=== PATIENT | female | born 1970 | race Caucasian/White ===

== ENCOUNTER 2017-12-05 15:20 | Inpatient (IN) | payer OTHER ==
--- NOTE | 2017-12-05 17:08 | ASMTLCPROG ---
Notes Note: Notes: [facility] to under the care of Dr. Cao for ECT evaluation and treatment. Date Signed: 12/05/2017 05:07 PM Electronically Signed By:Ashly Chu
--- NOTE | 2017-12-05 17:28 | ASMTTLCEVL ---
[facility] Evaluation - Basic Information Evaluation Start Date and 12/05/2017 04:45 PM Time Hospital Status Answers: Voluntary Patient statement Notes: Pt was not seen for evaluation. Information was obtained from reports gathered from in. stay at [facility] unit. Narrative Notes: Pt is a 46 year old female who had been admitted to [facility] behavioral health unit with suicidal ideations. Pts family had been concerned about her worsening symptoms of depression. Pt was experiencing inability to work or maintain her household responsibilities. 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 She has been treated with multiple SSRIs, SSRIs augmentation with lithium, thyroid hormones, abilify, stimulants, Wellbutrin and other mood stabilizers without significant improvement in symptoms. Per Dr Maguire report it was stated there does not appear to be any significant confounding diagnosis such as an underlying medical etiology or personality disorder. There was no report of any substance abuse hx or trauma. Pt was transferred to [facility] to be considered for ECT due to treatment resistant depression. Diagnosis History Notes: Pt has a hx of major depression with treatment resistant to a variety of medications. Prior suicide attempts Notes: There was no report available on history of past suicide attempts. Prior hospitalizations Notes: Information about past hospitalizations was not available. 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 She has been treated with multiple SSRIs, SSRIs augmentation with lithium, thyroid hormones, abilify, stimulants, Wellbutrin and other mood stabilizers without significant improvement in symptoms. History of violence Notes: Information about history of violence was not reported. Medications (name, dosage, route, freq uency) Notes: Wellbutrin XL, Adderall, Vit. D, Synthroid, Cytomel, Topamax, Bupropion, Dextroamphetamine, Fluoxetine, Levothy roxine, Topiramate. Allergies/Reaction Notes: Fentanyl, Penicillins, Sulfa and Tramadol. Sleep Notes: Not in report. Appetite Notes: Not available in report. Medical/Surgical history Notes: Pt has a confirmed hx of hyperathyroidism due to adenoma. She has had her parathyroid glands removed. Pt had denied any current thyroid concerns. Pt also has a hx of biliary dyskinesia and concussions. Substance use history (frequency, intensity, his tory, duration) Notes: Per report pt has no hx of substance abuse problems. Family composition Notes: Pt is with 2 children. Need for family Answers: Yes participation in patient's care Family psychiatric/substance abuse history Notes: Family hx of mental health problems was not available. Developmental history Notes: Developmental hx was not available. Abuse concerns Answers: None Marital status/children Notes: Pt is with 2 children. Living situation Notes: Pt lives with her and their 2 children. Sexual history/orientation Notes: Pt identifies herself as a heterosexual. Peer support/family strengths Notes: Pt appears to have family and friends who are concerned and involved. Education level/history Notes: Information about education was not available. Work history Notes: Pt is not employed. Notes: No known hx. Legal Notes: There is no report of any legal problem. Hindu/Spiritual Notes: There was no report of any catholic or spiritual beliefs that would impact her treatment. Leisure Notes: Information on leisure interests was not available in report from [facility]. Collateral Notes: Collateral inform was obtained from medical/physicatric reports of [facility]. Patient's strengths Answers: Good Friend to Others (Please select at least TWO strengths): Good Parent Honest [place] Motivated for Treatment Responsible/Dependable Supportive Family Willingness TLC Evaluation - Mental Status Exam Appearance: Answers: Appropriate Eye Contact: Answers: Appropriate for Culture Mood: Answers: Depressed Sad Affect: Answers: Apathetic Apprehensive Calm Congruent w/ Mood Flat Sad Behavior: Answers: Appropriate Cooperative Speech: Answers: Clear Coherent Thought Process: Answers: Oriented Insight: Answers: Fair Judgement: Answers: Fair Depression Answers: Difficulty Concentrating Signs/Symptoms: Diminished Interest Diminished Pleasure Flat Affect Hopelessness Sad Mood Withdrawn Hallucinations: Answers: None Current Stage of Change Answers: Action Pt reported to have Answers: Yes suicidal/self-injuring ideation/behavior? Pt reported to be making Answers: Yes suicidal/self-injuring threats? Pt reported to have Answers: No aggression/assault ideation/behavior? Pt reported to be making Answers: No aggression/assault threats? Pt exhibits inability to Answers: No care for self/grave disability? Patient has a specific Answers: Yes plan? Pt has access to means to Answers: Yes execute the plan? Ideation involves Answers: Yes serious/lethal intent? History of Answers: No aggressive/assaultive ideation, behavior, or threats? History of serious Answers: No physical harm to self/others while in treatment setting? TLC Evaluation - Suicide/Homicide Risk Suicide Risk Factors: Answers: Flat Affect Hopelessness Lack/Loss of Employment Major Depression None Current Suicidal Answers: Yes Ideation? Current Suicidal Ideation Answers: Yes in the Past 48 Hours? Current Suicidal Ideation Answers: Yes in the Past Month? Current Suicidal Answers: Yes Ideation, Worst Ever? Suicide Internal Answers: Absence of Psychosis Protective Factors: Suicide External Answers: Responsibility to Protective Factors: Children Ranking of patient's Answers: Severe suicidal risk: Ranking of patient's Answers: Low homicidal risk: TLC Evaluation - Wrap-up AXIS I Diagnosis (include DSM-V and ICD-10 codes), must also be entered in [employer], which is the source of truth. Notes: Major Depressive Disorder, recurrent, severe 296.33 (F33.2) DSM-V CODE: ICD-10 CODE: Evaluation End Date and 12/05/2017 05:30 PM Time (HH:MALOU): Date Signed: 12/05/2017 05:28 PM Electronically Signed By:Ashly Chu
[2017-12-05] MEDS ORDERED: MAGNESIUM HYDROXIDE 30 ML UDCUP PO PRN (22:24)
[2017-12-05] MEDS ORDERED: LORazepam 0.5 MG TAB PO PRN (22:24)
[2017-12-05] MEDS ORDERED: MAG HYDROX/AL HYDROX/SIMETH 30 ML UDCUP PO PRN (22:24)
[2017-12-05] MEDS ORDERED: NICOTINE POLACRILEX 2 MG GUM B PRN (22:24)
[2017-12-06] MEDS: LEVOTHYROXINE 88 MCG TAB PO SCH (08:09)
--- NOTE | 2017-12-06 08:33 | ASMTBHMTP ---
Master Treatment Plan Master Treatment Plan Answers: Depressed Mood with for: Suicidal Ideation Date: 12/05/2017 Diagnosis on Admission: Major Depressive Disorder, Recurrent, Severe 296.33 (F33.2) Expected length of stay: 3-5 days Reason for admission: Notes: Pt is a 46 year old female who had been admitted to [facility] in behavioral health unit with suicidal ideations. Pts family had been concerned about her worsening symptoms of depression. Pt was experiencing inability to work or maintain her household responsibilities. 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 She has been treated with multiple SSRIs, SSRIs augmentation with lithium, thyroid hormones, abilify, stimulants, Wellbutrin and other mood stabilizers without significant improvement in symptoms. Per Dr Maguire report it was stated there does not appear to be any significant confounding diagnosis such as an underlying medical etiology or personality disorder. There was no report of any substance abuse hx or trauma. Pt was transferred to [facility] to be considered for ECT due to treatment resistant depression. Patient's stated presenting problems: Notes: "Cause I can't deal with the craziness in my head anymore." Patient's goals for treatment: Notes: "hopefully, start ECT treatment and that it helps me feel better." Patient's strengths: Notes: some Identify supports outside of hospital: Notes: "Family and Friends" Discharge criteria: Notes: Suicidal Ideation will resolve and patient will have a plan to safely manage recurrent suicidal ideiaotn. Initial disposition plan/considerations: Notes: "To return home ([place] [facility]). Master Treatment Plan Required Signatures Psychiatrist signature: Answers: Psychiatrist: RN on-shift signature: Answers: RN: Patient signature: Answers: Patient: Date Signed: 12/06/2017 08:32 AM Electronically Signed By:Keon Alegre
--- NOTE | 2017-12-06 09:06 | GCON ---
[f rep st] CONSULTATION DATE OF CONSULTATION: 12/06/2017 REFERRING PHYSICIAN: Tasha Peñaloza MD REASON FOR CONSULTATION: Medical management. HISTORY OF PRESENT ILLNESS: A 47-year-old female with depression, cluster headaches, hypothyroidism, who had been admitted to [facility] inpatient behavior health unit with suicidal ideations. Her family had been concerned about worsening symptoms of depression, which she also endorses. She has been having increased crying episodes, decreased mood. She has been treated with multiple SSRIs, lit hium, Abilify, stimulants. No history of substance abuse or trauma. Her greatest concern is a 15-pound weight gain. She used to walk all the time, but has been so down that this is no longer part of her routine. Her sleep patterns vary to the point where she is sleepi ng all day or she is up all night. Her appetite is intermittent. Patient was transferred to [address] to be considered for ECT treatment for resistant depression. REVIEW OF SYSTEMS: I completed a 10-point review of systems, negative, except as noted in HPI. PAST MEDICAL HISTORY: Depression, cluster headaches, hypothyroidism, B12 deficiency. FAMILY HISTORY: No headaches. Mother with hypertension. PAST SURGICAL HISTORY: Right foot surgery x3. Hernia repair as a child, parathyroidectomy, adenoide ctomy, teratoma. SOCIAL HISTORY: Lives in [place] with her . Her 2 grown children have moved back to pay off student loans. Denies alcohol, tobacco, or illicits. HOME MEDICATIONS: Topamax 100 mg q.h.s., Prozac 40 mg daily, Adderall 40 mg daily, Synthroid 88 mcg daily, Wellbutrin 150 mg daily, Cytomel. She was previously on that, but this was discontinued at [facility]. ALLERGIES: Fentanyl, penicillin, sulfa, tramadol. PHYSICAL EXAMINATION: VITAL SIGNS: Temperature 36.4, blood pressure 101/51, heart rate in the 60s, respirations 16, 97% on room air. GENERAL: Overweight female, lying in bed, mildly tearful, but no acute distress. HEENT: PERRLA. Moist mucous membranes. CV: Regular rate and rhythm. LUNGS: Olga r. ABDOMEN: Obese, soft, nontender, nondistended. Positive bowel sounds. : No [place]. MUSCULOSK ELETAL: 5/5 upper/lower extremity strength. NEURO: 2 through 12 intact. PSYCH: Alert and oriente d x3. LABS: None. ASSESSMENT AND PLAN: 1. Resistant depression: On multiple agents. Was transferred here for ECT treatments. Resume home medications per Dr. Peñaloza. 2. Hypothyroidism: Cytomel was recently discontinued. Will check a baseline TSH here with weight g ain. 3. History of vitamin B deficiency: Will check this. Can replete with oral supplementation. 4. Weight gain: Suspect this is related to her depression, but labs as stated above. 5. Diet: Regular. 6. Deep vein thrombosis prophylaxis: She is ambulatory. Thanks for this consultation. Please call if any questions. /[id number]/MODL
[2017-12-06] MEDS: buPROPion XL 150 MG TAB PO SCH (09:26)
[2017-12-06] MEDS: FLUoxetine 20 MG CAP PO SCH (09:27)
[2017-12-06] MEDS: Dextroamphetamine/Amphetamine [Adderall Xr 20 Mg Capsule] PO SCH (14:26)
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
--- NOTE | 2017-12-06 20:13 | PDMN ---
Medical Necessity Medical [place] [facility] [place] major depressive disorder IP 3 days; pt transferred for ECT, further monitoring needed
[2017-12-06] MEDS: TOPIRAMATE 100 MG TAB PO SCH (20:48)
[2017-12-07] MEDS: LEVOTHYROXINE 88 MCG TAB PO SCH (06:59)
[2017-12-07] MEDS: FLUoxetine 20 MG CAP PO SCH (09:02)
[2017-12-07] MEDS: Dextroamphetamine/Amphetamine [Adderall Xr 20 Mg Capsule] PO SCH (09:03)
[2017-12-07] MEDS: buPROPion XL 150 MG TAB PO SCH (09:09)
[2017-12-07] MEDS: TOPIRAMATE 100 MG TAB PO SCH (20:34)
--- NOTE | 2017-12-07 21:55 | SOAPPROG ---
SOAP Progress Note Assessment/Plan: Assessment: 46yo CF with severe MDD transferred from [facility] to [facility] for ECT 12/07/17 15:30 per [facility] staff, pt has been isolative. On brief interview, pt reported no acute issues, no physical c/o. MSE: casually dressed, nml rate/low vol speech, mild psychomot retardation. nml e/c. mood was +depressed, with congruent affect, denied AH/VH. occ passive SI but no plan/intent to harm self. thoughts linear/goal-directed. decr spontaneity. insight fair, jdmt limited. cognition intact. Later noted to be trying very hard to contain her visible anxiety and emotional distress triggered by a yelling episode by a peer on the unit, which occurred yesterday (on her first hospital day, first hospitalization) as well. Family had just come to visit, so she was allowed a prolonged visit off the unit with them. She preferred to stay just outside unit in sitting area instead of going outside/courtyard also b/c one visitor on crutches. Mood seemed brightened with their visit. PLAN: cont current home meds, off Adderall and recently off Cytomel planning ECT consult in AM Objective: Vital Signs Temp Pulse Resp BP Pulse Ox 36.5 C 66 14 104/55 L 97 12/07/17 06:00 12/07/17 06:00 12/07/17 06:00 12/07/17 06:00 12/07/17 06:00 - Time Spent With Patient Time Spent With Patient: 20min - Pending Discharge Pending Discharge Within 24 Hours: No Pending Discharge Within 48 Hours: No ICD10 Worksheet Patient Problems: Problems Problem Status Onset Major depressive disorder, recurrent, severe without psychotic behavior Acute
[2017-12-08] MEDS: ACETAMINOPHEN 325 MG TAB PO PRN (08:39)
[2017-12-08] MEDS: FLUoxetine 20 MG CAP PO SCH (08:39)
[2017-12-08] MEDS: LEVOTHYROXINE 88 MCG TAB PO SCH (08:39)
[2017-12-08] MEDS: buPROPion XL 150 MG TAB PO SCH (08:39)
[2017-12-08] MEDS ORDERED: ONDANSETRON DISINTEGRATING 4 MG TAB PO PRN (11:49)
[2017-12-08] MEDS ORDERED: CITRIC ACID/SODIUM CITRATE 30 ML UDCUP PO PRN (11:49)
[2017-12-08] MEDS ORDERED: ONDANSETRON DISINTEGRATING 4 MG TAB ONE ×2 (15:03→16:54)
[2017-12-08] MEDS ORDERED: CITRIC ACID/SODIUM CITRATE 30 ML UDCUP ONE (15:04)
[2017-12-08] MEDS: NS 1,000 ML IV PRN (15:06)
[2017-12-08] MEDS ORDERED: MIDAZOLAM 2 MG/2 ML VIAL ONE (15:39)
[2017-12-08] MEDS ORDERED: fentaNYL 100 MCG/2 ML INJ ONE (15:39)
[2017-12-08] MEDS ORDERED: SUCCINYLCHOLINE CHLORIDE 200 MG/10 ML VIAL ONE (15:40)
[2017-12-08] MEDS ORDERED: ROCURONIUM 50 MG/5 ML VIAL ONE (15:40)
[2017-12-08] MEDS ORDERED: KETOROLAC 30 MG/1 ML SDV ONE (15:40)
[2017-12-08] MEDS ORDERED: GLYCOPYRROLATE 0.2 MG/1 ML VIAL ONE (15:40)
[2017-12-08] MEDS ORDERED: PROPOFOL 200 MG/20 ML VIAL ONE (15:40)
[2017-12-08] MEDS ORDERED: ONDANSETRON 4 MG/2 ML VIAL ONE (15:40)
[2017-12-08] MEDS ORDERED: ETOMIDATE 20 MG/10 ML VIAL ONE (15:40)
--- NOTE | 2017-12-08 15:41 | PDECTPN ---
ECT Progress Note Patient Problems: Problems Problem Status Onset Code Major depressive disorder, recurrent, severe without psychotic behavior Acute F33.2 Date: 12/08/17 ECT provider: Narendra Cao Anesthesia: Daniel Bob Stimulus dose (%): 35 Pulse width: 0.3 ECT EMG (sec): 27 ECT EEG (sec): 56 ECT treatment type: unilateral QIDS-SR Total Score: 21 QIDS-SR Question #12 Score: 0 MMSE Total Score (Max = 21): 20 Next ECT date: 12/10/17 Next ECT time: 14:30 Home medications: Medication Instructions Recorded Dextroamphetamine/Amphetamine 40 mg PO DAILY 12/05/17 [Adderall Xr 20 mg Capsule] FLUoxetine [Prozac 20 MG (*)] 40 mg PO DAILY 12/05/17 Levothyroxine [Synthroid 88 mcg 88 mcg PO DAILY06 12/05/17 (*)] Topiramate [Topamax 100MG (*)] 100 mg PO HS 12/05/17 buPROPion XL [Wellbutrin Xl] 150 mg PO DAILY 12/05/17 Medication review: completed Current treatment plan: acute phase Treatment plan frequency: 3 times per week ECT narrative: Pt presents for initial acute course treatment. She reports continued feelings of sadness, helplessness, hopelessness, guilt, shame, and SI. States, "I know I can't go on this way any more. I just want to go away." Mood remains depressed. C/o back and foot pain, and nausea. Affect is constricted, stable, approp. Mood is "depressed." TP is linear. TC reveals no psychosis. A&Ox4, sensorium is clear. SI persists. Underwent RUL ECT without complication. Will proceed with acute course ECT. Consider titration of bupropion.
--- NOTE | 2017-12-08 15:50 | PDHPUP ---
History & Physical Update H&P update statement: This history and physical update is based on an assessment of the patient which was completed after admission or registration (within 24 hours), but prior to the surgery/procedure. H&P update: H&P reviewed & patient examined, no change in patient's condition since H&P completed
--- NOTE | 2017-12-08 15:51 | PDANEPAE ---
ECT Pre Anesthetic Evaluation Allergies/Adverse Reactions: fentanyl Allergy (Verified 12/05/17 22:11) Penicillins Allergy (Verified 12/05/17 22:11) Sulfa (Sulfonamide Antibiotics) Allergy (Verified 12/05/17 22:11) tramadol Allergy (Verified 12/05/17 22:11) Patient ID confirmed: Yes H&P reviewed: Yes Pre-anesthetic history reviewed: Yes Heart: regular rate and rhythym, no murmur, rub, or gallop Lungs: no respiratory distress, clear to auscultation Mallampati Score: Class 1 ASA Status: III Home Medications: Medication Instructions Recorded Dextroamphetamine/Amphetamine 40 mg PO DAILY 12/05/17 [Adderall Xr 20 mg Capsule] FLUoxetine [Prozac 20 MG (*)] 40 mg PO DAILY 12/05/17 Levothyroxine [Synthroid 88 mcg 88 mcg PO DAILY06 12/05/17 (*)] Topiramate [Topamax 100MG (*)] 100 mg PO HS 12/05/17 buPROPion XL [Wellbutrin Xl] 150 mg PO DAILY 12/05/17 Medication review: completed Patient interviewed: Yes Patient examined: Yes Anesthetic plan discussed with patient: Yes Anesthetic risks discussed with patient: Yes ECT Pre-Anesthetic History - Height & Weight Height: 177.8 cm Weight: 106.849 kg BMI: 33.80 - Anesthesia History Hx Anesthesia Complications (with details): Has had a hard time waking up and has felt sick. Short acting is better. - Medications In the Past 6 Months the Patient Has Taken: Thyroid Medication - Tobacco/Alcohol/Drug Use Smoking Status: Never smoked Hx Drug/Substance Abuse: No Alcohol Use: No - Prior Surgeries/Hospitalizations Prior Surgeries: Parathyroid removed 2012. 3 surgeries on right foot:2011;2009 ; 1999. 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 Groin hernia repair in 1969. Prior Medical Hospitalizations: As above. 2 children born vaginally. - Pulmonary History ECT Hx Asthma: No Hx Abnormal Chest X-Ray: No Hx Oxygen in Use at Home: No - Cardiovascular History Hx Hypertension: No Currently Uses Hypertension Medication: No Hx Arrhythmias: No Hx Palpitations: No Hx Chest Pain: No Hx Coronary Artery / Peripheral Vascular Disease: No Hx Blood Clot: No - Neurologic History Hx Cerebrovascular Accident: No Hx CT Scan Or MRI Of The Brain: No Hx Epilepsy, Convulsions, Seizures, Or Blackouts: No Hx Frequent Or Severe Headaches: Yes Hx Numbness: No Hx Neurologic Disorder: No - Dental History Current Dental Issues: None - Endocrine History Hx Diabetes: No Current Daily Insulin Injections: No Hx Thyroid Problems: Yes Endocrine History Comment: Thyroid low; one parathyroid removed. - Renal/Urologic History Hx Renal Disorders: No Hx Urinary Tract Problems: No - Liver History Hx Hepatic Disorders: No - Cancer History Hx Cancer: No - Hematology History Hx Unexplained Bleeding Of Any Type: No Hx Ease Of Bruising: No Hx Anemia: No - Gastrointestinal History Hx Gastroesophogeal Reflux Disease: Yes Hx Ulcers: No Hx Hiatal Hernia: No Hx Difficulty Swallowing: No - Musculoskeletal Hisory Hx Chronic Pain: No Hx Arthritis: No - Opthalmic History Hx Glaucoma: No Visual Assistive Devices: Glasses Hx Opthalmic Disorders: No - Other Health History Physical Disabililty: No Recent Cough, Cold, or Fever: No Significant Weight Loss In The Last 4 Months: No Possible the Patient Might be : No Other Health History Comment: 1998 hysterecomy
[2017-12-08] MEDS ORDERED: ONDANSETRON DISINTEGRATING 4 MG TAB PO ONE (16:58)
--- NOTE | 2017-12-08 17:11 | POSTANESTH ---
Post Anesthetic Evaluation Cardiovascular Status: Normal, Stable Respiratory Status: Normal, Stable Level of Consciousness/Mental Status: Can Participate in Eval, Mildly Sleepy, Arousable Pain Control: Adequate, Prn Tx Ordered Nausea/Vomiting Control: Adequate, Prn Tx Ordered Complications Possibly Related to Anesthesia: Other, See Comments (oxygen saturation drops on room air Sent tounit with nasal oxygen titratd above 90%)
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
[2017-12-08] MEDS: TOPIRAMATE 100 MG TAB PO SCH (20:45)
[2017-12-08] MEDS ORDERED: diphenhydrAMINE 50 MG CAP PO ONE (23:00)
[2017-12-09] MEDS: buPROPion XL 150 MG TAB PO SCH (08:01)
[2017-12-09] MEDS: FLUoxetine 20 MG CAP PO SCH (08:01)
[2017-12-09] MEDS: ACETAMINOPHEN 325 MG TAB PO PRN (08:02)
[2017-12-09] MEDS: LEVOTHYROXINE 88 MCG TAB PO SCH (10:17)
--- NOTE | 2017-12-09 13:49 | SOAPPROG ---
SOAP Progress Note Assessment/Plan: Assessment: Plan: 12/09/17 13:51 Mood: Remains low with severe anxiety. Tolerated first acute course ECT well. Will CCM. Subjective: Pt seen, discussed with staff, reports feeling "better." Had a headache after treatment that has resolved. Participated in treatment team meeting and reviewed treatment plan. She states she she would like to d/c at the end of the week if possible. States her is able to transport her for outpatient treatment. Notes overall improvement in mood from initial admission. Anxiety remains high. Objective: Vital Signs Temp Pulse Resp BP Pulse Ox 36.5 C 63 14 100/64 96 12/09/17 06:00 12/09/17 06:00 12/09/17 06:00 12/09/17 06:00 12/09/17 06:00 12/08/17 12/09/17 12/10/17 05:59 05:59 05:59 Intake Total 1000 Output Total 0 Balance 1000 MSE: Notably anxious, sitting with closed body posture, head downcast, poor eye contact. Affect is dysphoric, anxious, constricted. Mood is "not good." TP is linear, goal-directed. TC reveals no psychosis. Denies active SI, though continues to question her ability to care for herself. - Time Spent With Patient Time Spent With Patient: 25" ICD10 Worksheet Patient Problems: Problems Problem Status Onset Major depressive disorder, recurrent, severe without psychotic behavior Acute - ICD10 Problem Qualifiers (1) Major depressive disorder, recurrent, severe without psychotic behavior
--- NOTE | 2017-12-09 14:00 | ASMTCMCOM ---
CM Note CM Note Notes: Pt. reports having a headache this morning, but otherwise doing "alright". Pt. reports having her first ECT yesterday. Pt. reports ECT made her nauseous and that she need oxygen after. Pt. reports no issues with her current medications. Pt. reports eating and sleeping well. Pt. denied SI, HI, AVH and paranoia. Pt. stated she has had "more anxiety being here than I've ever had in my life". Pt. rated her anxiety a 4-5/10, adding she is normally a 0/10. Pt. asked about what time she will have ECT on Friday. Staff report pt. sleeping 9 hours and being medication compliant. Date Signed: 12/09/2017 01:51 PM Electronically Signed By:Sun Sauer
[2017-12-09] MEDS: TOPIRAMATE 100 MG TAB PO SCH (18:33)
[2017-12-10] MEDS ORDERED: CITRIC ACID/SODIUM CITRATE 30 ML UDCUP PO PRN (04:00)
[2017-12-10] MEDS ORDERED: ONDANSETRON DISINTEGRATING 4 MG TAB PO PRN (04:00)
[2017-12-10] MEDS ORDERED: NS 1,000 ML IV PRN (04:00)
[2017-12-10] MEDS: FLUoxetine 20 MG CAP PO SCH (09:44)
[2017-12-10] MEDS: LEVOTHYROXINE 88 MCG TAB PO SCH (09:44)
[2017-12-10] MEDS: buPROPion XL 150 MG TAB PO SCH (09:45)
[2017-12-10] MEDS: ACETAMINOPHEN 325 MG TAB PO PRN (09:50)
[2017-12-10] MEDS ORDERED: MIDAZOLAM 2 MG/2 ML VIAL ONE (13:44)
[2017-12-10] MEDS ORDERED: KETOROLAC 30 MG/1 ML SDV ONE (13:45)
[2017-12-10] MEDS ORDERED: GLYCOPYRROLATE 0.2 MG/1 ML VIAL ONE (13:45)
[2017-12-10] MEDS ORDERED: ETOMIDATE 20 MG/10 ML VIAL ONE (13:45)
[2017-12-10] MEDS ORDERED: ONDANSETRON 4 MG/2 ML VIAL ONE (13:45)
[2017-12-10] MEDS ORDERED: fentaNYL 100 MCG/2 ML INJ ONE (13:45)
[2017-12-10] MEDS ORDERED: PROPOFOL 200 MG/20 ML VIAL ONE (13:45)
[2017-12-10] MEDS ORDERED: ROCURONIUM 50 MG/5 ML VIAL ONE (13:46)
[2017-12-10] MEDS ORDERED: SUCCINYLCHOLINE CHLORIDE 200 MG/10 ML VIAL ONE (13:46)
[2017-12-10] MEDS ORDERED: ONDANSETRON DISINTEGRATING 4 MG TAB ONE (14:02)
[2017-12-10] MEDS ORDERED: CITRIC ACID/SODIUM CITRATE 30 ML UDCUP ONE (14:03)
[2017-12-10] MEDS: NS 1,000 ML IV PRN (14:29)
--- NOTE | 2017-12-10 15:04 | PDECTPN ---
ECT Progress Note Patient Problems: Problems Problem Status Onset Code Major depressive disorder, recurrent, severe without psychotic behavior Acute F33.2 Date: 12/10/17 ECT provider: Narendra Cao Anesthesia: Daniel Bob Stimulus dose (%): 40 Pulse width: 0.3 ECT EMG (sec): 21 ECT EEG (sec): 41 ECT treatment type: unilateral QIDS-SR Total Score: 12 QIDS-SR Question #12 Score: 0 MMSE Total Score (Max = 21): 21 Next ECT date: 12/12/17 Next ECT time: 05:45 Home medications: Medication Instructions Recorded Dextroamphetamine/Amphetamine 40 mg PO DAILY 12/05/17 [Adderall Xr 20 mg Capsule] FLUoxetine [Prozac 20 MG (*)] 40 mg PO DAILY 12/05/17 Levothyroxine [Synthroid 88 mcg 88 mcg PO DAILY06 12/05/17 (*)] Topiramate [Topamax 100MG (*)] 100 mg PO HS 12/05/17 buPROPion XL [Wellbutrin Xl] 150 mg PO DAILY 12/05/17 Medication review: completed Current treatment plan: acute phase Treatment plan frequency: 3 times per week ECT narrative: Pt presents for continued acute course treatment. She reports no change in mood. Continues to feel "down." C/o neck soreness after last treatment. Continues to isolate on unit. Affect is constricted, stable, approp. Mood is "depressed." TP is linear. TC reveals no psychosis. A&Ox4, sensorium is clear. SI persists. Cognition good. Underwent RUL ECT without complication. Will continue acute course ECT.
--- NOTE | 2017-12-10 16:17 | POSTANESTH ---
Post Anesthetic Evaluation Cardiovascular Status: Normal, Stable Respiratory Status: Normal, Stable Level of Consciousness/Mental Status: Can Participate in Eval, Mildly Sleepy, Arousable Pain Control: Adequate, Prn Tx Ordered Nausea/Vomiting Control: Adequate, Prn Tx Ordered Complications Possibly Related to Anesthesia: None Noted
[2017-12-10] MEDS: TOPIRAMATE 100 MG TAB PO SCH (20:24)
[2017-12-11] MEDS: FLUoxetine 20 MG CAP PO SCH (08:52)
[2017-12-11] MEDS: buPROPion XL 150 MG TAB PO SCH (08:53)
[2017-12-11] MEDS: LEVOTHYROXINE 88 MCG TAB PO SCH (08:53)
--- NOTE | 2017-12-11 11:40 | ASMTBHDC ---
Notes Note: Notes: CC spoke to SADIQ Schroeder at ([phone]) to ask about transportation for out-paitnet ECT [place], etc. He noted that "it would not be a problem for me or her mother to take her back and forth to her out-patient ECT treaments." He noted, that "I will be available anytime tomorrow to p/u client once she is ready to discharge. CC will inform doctor. Date Signed: 12/11/2017 10:53 AM Electronically Signed By:Keon Alegre
--- NOTE | 2017-12-11 12:20 | ASMTBHDC ---
Notes Note: Notes: CC confirmed client's follow up discharge plan with Jermaine in ECT. If client's discharges tomorrow her follow up will be next week (see below): Follow up with: Dr. Cao (ECT) [facility] [address] [place] [id number] Next ECT Appt: FridayDecember 17 (12/17/17) at 2:30pm Date Signed: 12/11/2017 12:19 PM Electronically Signed By:Keon Alegre
--- NOTE | 2017-12-11 17:22 | SOAPPROG ---
SOAP Progress Note Assessment/Plan: Assessment: Plan: 12/09/17 13:51 Mood: Remains low with severe anxiety. Tolerated first acute course ECT well. Will CCM. 12/11/17 17:24 Mood: Some improvement, though remains quite depressed. I question her ability to adequately care for herself at home at this point. Will discuss with her and verify an adequate support plan. CCM. Subjective: Pt seen, discussed with staff. Reports feeling "a little better." Continues to isolate in room, little interaction with others. Neck pain is improved. Continues to plan to leave by weekend if she is feeling up to it. Continues to struggle with vision of caring for herself at home. Will likely be dependent on for support. She states this will "be fine" though we discussed how it didn't work well recently. Sleep is discontinuous. Objective: Vital Signs Temp Pulse Resp BP Pulse Ox 36.5 C 61 16 108/56 L 96 12/11/17 06:00 12/11/17 06:00 12/11/17 06:00 12/11/17 06:00 12/11/17 06:00 12/10/17 12/11/17 12/12/17 05:59 05:59 05:59 Intake Total 500 Balance 500 MSE: Moderately anxious, coop., guarded. Affect is dysphoric, blunted. Mood is "depressed." TP is linear. TC reveals no psychosis. No SI noted. - Time Spent With Patient Time Spent With Patient: 25" ICD10 Worksheet Patient Problems: Problems Problem Status Onset Major depressive disorder, recurrent, severe without psychotic behavior Acute - ICD10 Problem Qualifiers (1) Major depressive disorder, recurrent, severe without psychotic behavior
[2017-12-11] MEDS: TOPIRAMATE 100 MG TAB PO SCH (19:18)
[2017-12-12] MEDS ORDERED: MIDAZOLAM 2 MG/2 ML VIAL ONE (04:18)
[2017-12-12] MEDS ORDERED: KETOROLAC 30 MG/1 ML SDV ONE (04:18)
[2017-12-12] MEDS ORDERED: fentaNYL 100 MCG/2 ML INJ ONE (04:18)
[2017-12-12] MEDS ORDERED: ETOMIDATE 20 MG/10 ML VIAL ONE (04:19)
[2017-12-12] MEDS ORDERED: PROPOFOL 200 MG/20 ML VIAL ONE (04:19)
[2017-12-12] MEDS ORDERED: GLYCOPYRROLATE 0.2 MG/1 ML VIAL ONE (04:19)
[2017-12-12] MEDS ORDERED: ONDANSETRON 4 MG/2 ML VIAL ONE (04:19)
[2017-12-12] MEDS ORDERED: ROCURONIUM 50 MG/5 ML VIAL ONE (04:20)
[2017-12-12] MEDS ORDERED: SUCCINYLCHOLINE CHLORIDE 200 MG/10 ML VIAL ONE (04:20)
[2017-12-12] MEDS ORDERED: CITRIC ACID/SODIUM CITRATE 30 ML UDCUP PO PRN (05:00)
[2017-12-12] MEDS ORDERED: ONDANSETRON DISINTEGRATING 4 MG TAB PO PRN (05:00)
[2017-12-12] MEDS ORDERED: NS 1,000 ML IV PRN (05:00)
[2017-12-12] MEDS ORDERED: ONDANSETRON DISINTEGRATING 4 MG TAB ONE (05:20)
[2017-12-12] MEDS ORDERED: CITRIC ACID/SODIUM CITRATE 30 ML UDCUP ONE (05:20)
--- NOTE | 2017-12-12 05:51 | PDECTPN ---
ECT Progress Note Patient Problems: Problems Problem Status Onset Code Major depressive disorder, recurrent, severe without psychotic behavior Acute F33.2 Date: 12/12/17 ECT provider: Narendra Cao Anesthesia: Daniel Bob Stimulus dose (%): 45 Pulse width: 0.3 ECT EMG (sec): 20 ECT EEG (sec): 33 ECT treatment type: unilateral QIDS-SR Total Score: 12 QIDS-SR Question #12 Score: 0 MMSE Total Score (Max = 21): 21 Next ECT date: 12/17/17 Next ECT time: 15:00 Home medications: Medication Instructions Recorded Dextroamphetamine/Amphetamine 40 mg PO DAILY 12/05/17 [Adderall Xr 20 mg Capsule] FLUoxetine [Prozac 20 MG (*)] 40 mg PO DAILY 12/05/17 Levothyroxine [Synthroid 88 mcg 88 mcg PO DAILY06 12/05/17 (*)] Topiramate [Topamax 100MG (*)] 100 mg PO HS 12/05/17 buPROPion XL [Wellbutrin Xl] 150 mg PO DAILY 12/05/17 Medication review: completed Current treatment plan: acute phase Treatment plan frequency: 3 times per week ECT narrative: Pt presents for continued acute course treatment. She reports some improvement in mood. Sleeping better, less anxious. Remains active in treatment, motivated for recovery. Affect is constricted, stable, approp. Mood is "better." TP is linear. TC reveals no psychosis. A&Ox4, sensorium is clear. SI persists. Cognition good. Underwent RUL ECT without complication. Will continue acute course ECT.
--- NOTE | 2017-12-12 07:08 | POSTANESTH ---
Post Anesthetic Evaluation Cardiovascular Status: Normal, Stable Respiratory Status: Normal, Stable Level of Consciousness/Mental Status: Can Participate in Eval, Alert and Oriented Pain Control: Adequate, Prn Tx Ordered Nausea/Vomiting Control: Adequate, Prn Tx Ordered Complications Possibly Related to Anesthesia: None Noted
[2017-12-12] MEDS: LEVOTHYROXINE 88 MCG TAB PO SCH ×2 (08:18→15:13)
[2017-12-12] MEDS: FLUoxetine 20 MG CAP PO SCH ×2 (08:18→15:13)
[2017-12-12] MEDS: buPROPion XL 150 MG TAB PO SCH ×2 (08:18→15:12)
[2017-12-12 09:28] VITALS: BP 114/55
[2017-12-12] MEDS ORDERED: PROMETHAZINE HCL 25 MG TAB PO ONE (09:30)
--- NOTE | 2017-12-12 10:55 | ASMTCMCOM ---
CM Note CM Note Notes: CC checked in with ct. ahead of her discharge. Ct. is OK. is picking her up and she has an ECT appointment scheduled for 12/17/17. Date Signed: 12/12/2017 10:54 AM Electronically Signed By:Humaira Barber
== END 2017-12-12 11:00 | disposition home or self-care (01) | DRG 885 ==
LOC: BBEH 19:41
PROVIDERS: ADMIT Psychiatry & Neurology Psychiatry; ATTEND Psychiatry & Neurology Psychiatry
PROC: GZB0ZZZ Electroconvulsive Therapy, Unilateral-Single Seizure (ICD-10-PCS; principal; 2017-12-08)
DX: F33.2 Major depressive disorder, recurrent severe without psychotic features (principal); E03.9 Hypothyroidism, unspecified; E53.9 Vitamin B deficiency, unspecified; Z87.820 Personal history of traumatic brain injury
CPT/HCPCS: J0330; J1885; J2250; J2270; J2405; J2704; J3010